=== PATIENT | male | born 1965 | race Asian ===

== ENCOUNTER 2020-11-13 14:16 | Emergency (ER) | payer SELFPAY ==
[~2020-11-13] VITALS: Ht 177.8 cm; Wt 61.0 kg
[2020-11-13] MEDS ORDERED: AMOX-424 MT (14:56)
[2020-11-13] MEDS ORDERED: TETANUS, DIPHTHERIA, PERTUSSIS VAC/PF 0.5ML (>7YR OLD) IM ONE (15:00)
[2020-11-13 15:01] VITALS: BP 128/70
== END 2020-11-13 15:01 | disposition home or self-care (01) ==
LOC: ER 14:16
DX: S51.851A Open bite of right forearm, initial encounter (principal); W54.0XXA Bitten by dog, initial encounter; Y93.89 Activity, other specified; Y92.89 Other specified places as the place of occurrence of the external cause; Y99.8 Other external cause status
CPT/HCPCS: 90471; 90715; 99283